=== PATIENT | female | born 1975 | race Caucasian/White ===

== ENCOUNTER 2018-11-26 14:29 | Inpatient (IN) | payer OTHER ==
[~2018-11-26] VITALS: Ht 157.5 cm; Wt 66.3 kg
[2018-11-26 15:01] VITALS: Ht 157.5 cm; Wt 66.3 kg
[2018-11-26 16:11] LABS: BASOPHIL % 0.5 % (0-2); PLATELET COUNT 252 x10^3mcL (130-400); RED CELL DISTRIBUTION WIDTH 14.5 % (11.5-14.5)
[2018-11-26 16:13] LABS: microscopic required? YES; urine erythrocyte 2+ (NEGATIVE)
[2018-11-26 16:28] LABS: CALCIUM 8.6 mg/dL (8.5-10.1); CARBON DIOXIDE 27.6 mmol/L (21-32); CHLORIDE SERUM 101 mmol/L (98-107); CREATININE SERUM 0.9 mg/dL (0.6-1.0); GFR1 > 60 mL/min; GLUCOSE SERUM 75 mg/dL (74-106); POTASSIUM SERUM 3.7 mmol/L (3.5-5.1); SODIUM SERUM 138 mmol/L (136-145)
[2018-11-26 16:32] LABS: ALBUMIN 4.1 g/dL (3.4-5.0); ALKALINE PHOSPHATASE 78 U/L (46-116); ALT/SGPT 18 U/L (14-59); AST/SGOT 17 U/L (15-37); BILIRUBIN TOTAL 0.22 mg/dL (0.20-1.00)
[2018-11-26] MEDS ORDERED: ABILIFY5 M1 PO (17:18)
[2018-11-26] MEDS ORDERED: VENLAFAXINE HY150 MG PO (17:18)
[2018-11-26] MEDS ORDERED: TRAZODONE50 M1 PO (17:19)
[2018-11-26 17:55] LABS: CHOLESTEROL/HDL RATIO 2.4; MAGNESIUM 2.3 mg/dL (1.8-2.4); PHOSPHOROUS 4.1 mg/dL (2.5-4.9)
[2018-11-26 19:03] LABS: T3 TOTAL 1.04 ng/mL
[2018-11-26 19:04] LABS: FREE T4 0.83 ng/dL (0.76-1.46); FREE THYROXINE INDEX 2.3 ug/dL (1.4-4.5); T4(THYROXINE) 6.1 ug/dL (4.7-13.3)
[2018-11-26 19:05] VITALS: BP 115/70
[2018-11-26 20:32] VITALS: BP 111/71
[2018-11-26 21:52] VITALS: BP 103/57
[2018-11-27 01:48] LABS: AMPHETAMINE QUAL UR NONE DETECTED (See below)
[2018-11-27 06:04] VITALS: BP 113/61
[2018-11-27 06:25] LABS: BASOPHIL % 0.5 % (0-2); PLATELET COUNT 203 x10^3mcL (130-400); RED CELL DISTRIBUTION WIDTH 14.3 % (11.5-14.5)
[2018-11-27 06:51] LABS: CALCIUM 7.7 mg/dL (8.5-10.1); CARBON DIOXIDE 24.2 mmol/L (21-32); CHLORIDE SERUM 107 mmol/L (98-107); CREATININE SERUM 0.6 mg/dL (0.6-1.0); GFR1 > 60 mL/min; GLUCOSE SERUM 89 mg/dL (74-106); MAGNESIUM 2.2 mg/dL (1.8-2.4); PHOSPHOROUS 3.4 mg/dL (2.5-4.9); SODIUM SERUM 140 mmol/L (136-145)
[2018-11-27 10:41] VITALS: BP 102/64
[2018-11-27 13:52] VITALS: BP 94/51
[2018-11-27 17:06] VITALS: BP 117/73
[2018-11-27 19:15] VITALS: BP 106/77
[2018-11-28 06:47] LABS: CALCIUM 8.3 mg/dL (8.5-10.1); CARBON DIOXIDE 24.4 mmol/L (21-32); CHLORIDE SERUM 106 mmol/L (98-107); CREATININE SERUM 0.7 mg/dL (0.6-1.0); GFR1 > 60 mL/min; GLUCOSE SERUM 86 mg/dL (74-106); MAGNESIUM 2.2 mg/dL (1.8-2.4); POTASSIUM SERUM 3.8 mmol/L (3.5-5.1); SODIUM SERUM 138 mmol/L (136-145)
[2018-11-28 07:25] LABS: BASOPHIL % 0.6 % (0-2); PLATELET COUNT 214 x10^3mcL (130-400); RED CELL DISTRIBUTION WIDTH 14.4 % (11.5-14.5)
[2018-11-28 09:48] VITALS: BP 110/74
[2018-11-28] MEDS ORDERED: CIPRO500 MG PO (10:47)
[2018-11-28 11:37] VITALS: BP 110/74
[2018-11-28 12:34] VITALS: BP 102/62
== END 2018-11-28 12:27 | disposition home or self-care (01) | DRG 48 ==
LOC: ED 14:29 → MU 17:27 → DU 11-27 17:16
PROVIDERS: Emergency Medicine; Internal Medicine; ADMIT Family Medicine
DX: G90.9 Disorder of the autonomic nervous system, unspecified (principal); M48.02 Spinal stenosis, cervical region; E78.5 Hyperlipidemia, unspecified; N39.0 Urinary tract infection, site not specified; F12.10 Cannabis abuse, uncomplicated; F32.9 Major depressive disorder, single episode, unspecified; F17.210 Nicotine dependence, cigarettes, uncomplicated; E86.0 Dehydration; W18.30XA Fall on same level, unspecified, initial encounter; Y93.89 Activity, other specified; Y92.89 Other specified places as the place of occurrence of the external cause; Y99.8 Other external cause status
CPT/HCPCS: 83880; 84439; 85378; 97116-GP; 97530-GP; J0696; J7030; Q0092